=== PATIENT | male | born 1975 | race Caucasian/White ===

== ENCOUNTER 2019-05-25 09:21 | Emergency (ER) | payer OTHER ==
[~2019-05-25] VITALS: Ht 177.8 cm; Wt 95.5 kg
[~2019-05-25 09:21] MED LIST: PRINIVIL5 MG PO
[2019-05-25 09:23] VITALS: BP 143/84; PULSE 69; TEMP 98.5
[2019-05-25] MEDS ORDERED: CRUTCHES MC (09:48)
== END 2019-05-25 10:11 | disposition home or self-care (01) ==
LOC: COL.ER 09:21
DX: S76.112A Strain of left quadriceps muscle, fascia and tendon, initial encounter (principal); I10 Essential (primary) hypertension; X50.1XXA Overexertion from prolonged static or awkward postures, initial encounter; Y92.39 Other specified sports and athletic area as the place of occurrence of the external cause